=== PATIENT | female | born 1995 | race Caucasian/White ===

== ENCOUNTER 2021-04-06 01:00 | Emergency (ER) | payer BC ==
[~2021-04-06] VITALS: Ht 182.9 cm; Wt 83.9 kg
--- NOTE | 2021-04-06 01:04 | NUR ---
PT [facility]. TAKEN TO BED 3
--- NOTE | 2021-04-06 01:05 | NUR ---
Dr. Ferrera examining patient.
[2021-04-06] MEDS ORDERED: LORazepam 2 MG/ML VIAL IVP ONE (01:10)
[2021-04-06] MEDS ORDERED: NACL 0.9% 1,000 ML IV ONE (01:10)
[2021-04-06] MEDS ORDERED: PROCHLORPERAZINE 10 MG/2 ML VIAL IVP ONE (01:10)
[2021-04-06] MEDS ORDERED: diphenhydrAMINE 50 MG/ML VIAL IVP ONE (01:10)
[2021-04-06 01:24] VITALS: BP 154/88
--- NOTE | 2021-04-06 01:29 | NUR ---
LABS AT BEDSIDE
--- NOTE | 2021-04-06 01:32 | NUR ---
25 Y/O FEMALE BIBA, C/O N/V S/P ALCOHOL EARLIER TODAY. PATIENT PRESENTS TO ED WITH N/V, INTERMITTENT PAIN IN EPIGASTRIC REGION, AND DYSRYTHMIA. PT STATES SHE STAETED DRINKING AT 1400 EARLIER TODAY AND HAD X2 BEERS AND X2 SHOTS. DENIES DIARRHEA OR BLOOD IN VOMIT OR URINE; SKIN IS PINK/WARM/DRY; AAOX4 WITH EVEN AND WEAK GAIT (DUE TO JUDIT); HR HAS OCCASIONAL DYSRYTHMIA DIPPING INTO THE 50s; PT DENIES ANY FEVER, CP, SOB, OR COUGH AT THIS TIME; PATIENT STATES PAIN OF 5/10 AT THIS TIME; VSS; GCS:15; PATIENT POSITIONED FOR COMFORT; HOB ELEVATED; BEDRAILS UP X2; BED DOWN. ER MD MADE AWARE OF PT STATUS. HX: HTN NKDA MED: HYDROCHLOROTHIAZIDE
[2021-04-06 01:45] LABS: BASOPHILS % (AUTO) 0.3 % (0.0-2.0); HEMATOCRIT 36.8 % (36-48); HEMOGLOBIN 12.5 g/dL (12.0-16.0); LYMPHOCYTES # (AUTO) 1.2 K/uL (2.5-16.5); LYMPHOCYTES % (AUTO) 9.7 % (20.5-51.1); MEAN CORPUSCULAR HEMOGLOBIN 31 pg (27-31); MEAN CORPUSCULAR HGB CONC 34 g/dL (33-37); MEAN CORPUSCULAR VOLUME 90.7 fL (80-94); MONOCYTES # (AUTO) 0.4 K/uL (0.8-1.0); MONOCYTES % (AUTO) 3.2 % (1.7-9.3); NEUTROPHILS # (AUTO) 11.2 K/uL (1.8-7.7); NEUTROPHILS % (AUTO) 86.8 % (42.2-75.2); PLATELET COUNT (AUTO) 225 K/uL (140-450); RED BLOOD CELL COUNT(AUTO) 4.06 MIL/uL (4.20-5.40); RED CELL DISTRIBUTION WIDTH 13.5 % (11.6-13.7); WHITE BLOOD COUNT (AUTO) 12.9 K/uL (4.8-10.8)
[2021-04-06 02:05] LABS: ALBUMIN 3.9 g/dL (3.4-5.0); ANION GAP 16.8 (8-16); CARBON DIOXIDE 23.3 mmol/L (21-32); CREATININE 1.1 mg/dL (0.6-1.3); POTASSIUM 4.1 mmol/L (3.5-5.1); TOTAL BILIRUBIN 0.3 mg/dL (0.0-1.0)
[2021-04-06] MEDS ORDERED: ONDA-188 SL (02:31)
[2021-04-06] MEDS ORDERED: FAMO-92 PO (02:31)
--- NOTE | 2021-04-06 02:40 | NUR ---
Patient discharged with v/s stable. Written and verbal after care instructions given and explained. Patient alert, oriented and verbalized understanding of instructions. Ambulatory with steady gait. All questions addressed prior to discharge. ID band removed. Patient advised to follow up with PMD. Rx of Famotidine and Ondansetron given. Patient educated on indication of medication including possible reaction and side effects. Opportunity to ask questions provided and answered. VSS, A/OX4, AMBULATORY, UNLABORED BREATHING, AND CALM DEMEANOR. Pt got a ride from family waiting in the lobby.
[2021-04-06 02:41] VITALS: BP 154/88
--- NOTE | 2021-04-08 12:58 | NUR ---
LATE ENTRY- IV NORMAL SALINE DISCONTINUED AT 0240.
== END 2021-04-06 02:40 | disposition home or self-care (01) ==
LOC: MED 01:00
DX: K29.20 Alcoholic gastritis without bleeding (principal); R11.2 Nausea with vomiting, unspecified; F12.90 Cannabis use, unspecified, uncomplicated; Z79.899 Other long term (current) drug therapy
CPT/HCPCS: 36415; 80053; 83690; 84703; 85025; 96361; 96374; 96375; 99284; J0780; J1200; J2060; J7030